=== PATIENT | female | born 1975 | race Caucasian/White ===

== ENCOUNTER → 2016-04-22 | Outpatient (CLI) | payer BC ==
--- NOTE | 2016-04-22 09:19 | DX ---
PA and lateral chest History: Breast cancer, cough with right chest pain, port placed recently. Comparison: None available. Findings: Right subclavian chest port tip is in the mid SVC. The lungs are clear. There is no pneum othorax or pleural effusion. The heart and pulmonary vasculature are normal. The bones are normal. Impression: No acute findings in the chest.
== END ==
LOC: FIMAGING 08:43
PROVIDERS: ATTEND Internal Medicine Hematology & Oncology
DX: R07.9 Chest pain, unspecified (principal)

== ENCOUNTER → 2016-10-25 | Outpatient (CLI) | payer BC | LOC: BRMIMAGING 08:50 | PROVIDERS: ATTEND Internal Medicine Hematology & Oncology | DX: Z13.820 Encounter for screening for osteoporosis (principal); Z85.3 Personal history of malignant neoplasm of breast ==

== ENCOUNTER → 2017-02-18 | Outpatient (CLI) | payer BC | LOC: FIMAGING 09:30 | PROVIDERS: ATTEND Nurse Practitioner | DX: J18.1 Lobar pneumonia, unspecified organism (principal); Z95.9 Presence of cardiac and vascular implant and graft, unspecified ==

== ENCOUNTER → 2017-02-19 | Outpatient (CLI) | payer BC | LOC: CIMAGING 10:29 | PROVIDERS: ATTEND Nurse Practitioner | DX: R91.8 Other nonspecific abnormal finding of lung field (principal) | CPT/HCPCS: 71250-PO ==

== ENCOUNTER → 2018-09-07 | Outpatient (CLI) | payer BC | LOC: BRMIMAGING 08:16 ==